=== PATIENT | female | born 1995 | race Two or more races ===

== ENCOUNTER 2022-10-27 19:06 | Emergency (ER) | payer MEDICAID ==
[~2022-10-27] VITALS: Ht 157.5 cm; Wt 63.5 kg
--- NOTE | 2022-10-27 22:20 | NUR ---
BIBS C/O L ARM NUMBNESS, BODY TINGLING, VAGINAL DISCHARGE X TODAY.
[2022-10-27] MEDS ORDERED: DOXYCYCLINE HYCLATE (100 MG) 100 MG TABLET PO ONE (22:30)
[2022-10-27] MEDS ORDERED: CEFTRIAXONE 500 MG VIAL IM ONE (22:30)
[2022-10-27] MEDS ORDERED: CEFTRIAXONE 500 MG VIAL ONE (22:30)
[2022-10-27] MEDS ORDERED: LORAZEPAM 1 MG TABLET PO ONE (22:30)
[2022-10-27] MEDS ORDERED: LORAZEPAM 1 MG TABLET ONE (22:31)
[2022-10-27] MEDS ORDERED: DOXYCYCLINE HYCLATE (100 MG) 100 MG TABLET ONE (22:32)
[2022-10-27] MEDS ORDERED: LIDOCAINE 1% INJ 50 ML MDV IJ ONE (22:33)
[2022-10-27 23:04] LABS: BILIRUBIN,URINE 1+ (NEGATIVE); COLOR,URINE YELLOW (YELLOW); LEUKOCYTE ESTERASE ,URINE TRACE (NEGATIVE); NITRITE, URINE POSITIVE (NEGATIVE); PH,URINE 5.5 (5.0-8.0); PROTEIN,URINE NEGATIVE (NEGATIVE); UGLUCOSE NEGATIVE (NEGATIVE); UROBILINOGEN,URINE 0.2 EU/dL (0.2)
[2022-10-27] MEDS ORDERED: DOXY-326 PO (23:08)
[2022-10-27 23:14] LABS: BACTERIA,URINE Moderate /HPF (None Seen); SQUAMOUS EPITHELIAL CELL,UR Few /HPF (None Seen)
--- NOTE | 2022-10-27 23:36 | NUR ---
Patient discharged to home in stable condition. Written and verbal after care instructions given. Patient verbalizes understanding of instruction.
[2022-10-28 01:57] VITALS: BP 132/71
== END 2022-10-27 23:40 | disposition home or self-care (01) ==
LOC: ER 19:08
DX: A64 Unspecified sexually transmitted disease (principal); F41.9 Anxiety disorder, unspecified; Z79.899 Other long term (current) drug therapy
CPT/HCPCS: 99283; 96372; 87086; 84703; 81001; 87491; 87591; J3490; J0696

== ENCOUNTER → 2024-03-05 | Emergency (ER) | payer MEDICAID, OTHER ==
[~2024-03-05] VITALS: Ht 157.5 cm; Wt 55.3 kg
[~2024-03-05] MED LIST: CIPR-262 PO; DOXY-326 PO
[2024-03-05 13:34] LABS: APPEARANCE,URINE Clear (CLEAR); BILIRUBIN,URINE Negative (NEGATIVE); BLOOD, URINE Large Ery/uL (NEGATIVE); COLOR,URINE YELLOW (YELLOW); KETONES,URINE Negative (NEGATIVE); LEUKOCYTE ESTERASE ,URINE Small (NEGATIVE); NITRITE, URINE Negative (NEGATIVE); PROTEIN,URINE >=300 mg/dl (NEGATIVE); UGLUCOSE Negative (NEGATIVE); UROBILINOGEN,URINE 0.2 EU/dL (0.2)
[2024-03-05 13:39] LABS: PREGNANCY TEST URINE QUAL NEGATIVE (NEGATIVE)
[2024-03-05 13:57] LABS: ADD URINE CULTURE YES; BACTERIA,URINE Rare /HPF (None Seen); RBC,URINE 21-50 /HPF (0-2); SQUAMOUS EPITHELIAL CELL,UR Few /HPF (None Seen)
[2024-03-05 14:16] VITALS: BP 112/61; TEMP 98.7; O2SAT 100
[2024-03-06 14:07] LABS: CHLAMYDIA TRACHOMATIS NAA Negative (Negative); NEISSERIA GONORRHOEAE NAA Negative (Negative)
== END | disposition home or self-care (01) ==
LOC: ER 14:23
DX: N39.0 Urinary tract infection, site not specified (principal); R10.2 Pelvic and perineal pain; Z79.899 Other long term (current) drug therapy
CPT/HCPCS: 81001; 84703-TC; 87491; 87591